=== PATIENT | female | born 1985 | race Two or more races ===

== ENCOUNTER 2018-12-28 22:30 | Emergency (ER) | payer MEDICAID ==
[~2018-12-28] VITALS: Ht 152.4 cm; Wt 48.5 kg
[2018-12-28 22:54] VITALS: BP 114/63
--- NOTE | 2018-12-28 22:54 | NUR ---
ED Nurse Note: Pt arrived ED from home, c/o Headache on and off for a month, 04/01. Pt is A/O X 4. Vital signs stable at this time, waitng for orders.
[2018-12-28] MEDS ORDERED: TRAMADOL HCL50 MG ORAL (23:34)
[2018-12-28] MEDS ORDERED: PRILOSEC OTC20 MG ORAL (23:34)
--- NOTE | 2018-12-28 23:35 | Emergency Room Report ---
History of Present Illness General Chief Complaint: Headache Source: Patient Present Illness HPI Is a 33-year-old female with no past medical history. She presents with chief complaint of shoulder pain and neck pain and headache. His onset on and off for about several months. Worse when she carried her son. No trauma. No fever chills. No nausea no vomiting. She also has a history H. pylori infection and has epigastric pain. The motion is making it worse. Denies any other complaint. No chest pain. Allergies: Coded Allergies: CODEINE (Verified Allergy, Unknown, ITCHING, 07/14/09) IODINE (Verified Allergy, Unknown, ITCHING, 07/14/09) VANCOMYCIN (Verified Allergy, Unknown, 12/28/18) Uncoded Allergies: CATS (Allergy, Unknown, ITCHING, 07/14/09) PENICILLIN (Allergy, Unknown, 12/28/18) Patient History Past Medical History: see triage record, old chart reviewed Past Surgical History: none Pertinent Family History: none Social History: Denies: smoking Last Menstrual Period: december Now: No Immunizations: other Reviewed Nursing Documentation: PMH: Agreed; PSxH: Agreed Nursing Documentation-PMH Hx Gastrointestinal Problems: Yes - gastritis Review of Systems Eye: Denies: eye pain, blurred vision ENT: Denies: ear pain, nose congestion, throat swelling Respiratory: Denies: cough, shortness of breath Cardiovascular: Denies: chest pain, palpitations Gastrointestinal: Denies: abdominal pain, diarrhea, nausea, vomiting Musculoskeletal: Reports: back pain, joint pain, muscle pain Skin: Denies: rash Neurological: Denies: headache, numbness Endocrine: Denies: increased thirst, increased urine Hematologic/Lymphatic: Denies: easy bruising All Other Systems: negative except mentioned in HPI Physical Exam Vital Signs Date Time Temp Pulse Resp B/P (MAP) Pulse Ox O2 Delivery O2 Flow Rate FiO2 12/28/18 22:39 97.9 70 16 112/65 97 Room Air vitals normal Sp02 EP Interpretation: reviewed, normal General Appearance: well appearing, no apparent distress, alert Head: normocephalic, atraumatic Eyes: bilateral eye PERRL, bilateral eye EOMI ENT: hearing grossly normal, normal pharynx Neck: full range of motion, supple, no meningismus Respiratory: chest non-tender, lungs clear, normal breath sounds Cardiovascular #1: regular rate, rhythm, no murmur Gastrointestinal: normal bowel sounds, non tender, no mass, no organomegaly, no bruit, non-distended Musculoskeletal: back normal, gait/station normal, normal range of motion Psychiatric: mood/affect normal Skin: warm/dry Medical Decision Making Diagnostic Impression: Primary Impression: Headache Qualified Codes: G44.209 - Tension-type headache, unspecified, not intractable Additional Impressions: Arthralgia Qualified Codes: M25.50 - Pain in unspecified joint Gastritis Qualified Codes: K29.00 - Acute gastritis without bleeding ER Course Patient with multiple vague symptoms. No evidence of any fracture dislocation. We'll discharge home. Last Vital Signs Date Time Temp Pulse Resp B/P (MAP) Pulse Ox O2 Delivery O2 Flow Rate FiO2 12/28/18 22:54 97.8 78 16 114/63 97 Room Air Status: unchanged Disposition: HOME, SELF-CARE Condition: Stable Scripts Tramadol Hcl* (ULTRAM*) 50 Mg Tablet 50 MG ORAL Q6H PRN for For Pain, #20 TAB 0 Refills Prov: Ender Coulter MD 12/28/18 Omeprazole Magnesium (PRILOSEC OTC) 20 Mg Tablet. 20 MG ORAL DAILY, #30 TAB Prov: Ender Coulter MD 12/28/18 Patient Instructions: Tension Headache Additional Instructions: Follow-up with your doctor in 7 days. Return if symptom worsen. Ender Coulter MD Dec 28, 2018 23:35
[2018-12-28 23:49] VITALS: BP 113/62
--- NOTE | 2018-12-28 23:49 | NUR ---
ER DISCHARGE NOTE: Patient is cleared to be discharged per Dr. Coulter. Meds given as ordered. Pt is A/O x4 on room air with stable vital signs. Pt was given dc and prescription instructions, pt was able to verbalize understanding, pt id band removed . pt is able to ambulate with steady gait, pt took all belongings.
== END 2018-12-28 23:49 | disposition home or self-care (01) ==
LOC: EMR 23:28
DX: G44.209 Tension-type headache, unspecified, not intractable (principal); K29.00 Acute gastritis without bleeding; M25.50 Pain in unspecified joint; M54.2 Cervicalgia; M25.519 Pain in unspecified shoulder; M79.10 Myalgia, unspecified site; Z88.5 Allergy status to narcotic agent; Z91.048 Other nonmedicinal substance allergy status; Z88.1 Allergy status to other antibiotic agents; Z88.0 Allergy status to penicillin; Z91.09 Other allergy status, other than to drugs and biological substances
CPT/HCPCS: 99282